=== PATIENT | male | born 1965 | race Caucasian/White ===

== ENCOUNTER 2024-05-17 18:04 | Emergency (ER) | payer SELFPAY ==
[2024-05-17 18:07] VITALS: BP 138/76
[2024-05-17 19:00] VITALS: BP 127/83
--- NOTE | 2024-05-17 19:20 | ED.GENMED ---
History of Present Illness
General
Chief Complaint: Foreign Body Removal
Source: patient
Time Seen by Provider: 05/17/24 18:36
History of Present Illness
History of Present Illness:
58-year-old male who presents with a rectal foreign body. 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 Patient states 'my girlfriend stuck it up there when she got mad at me'. Patient denies any other symptoms. Does not have a
history of pulmonary fibrosis. States he feels some discomfort but no serious abdominal pain. He reports that occurred yesterday
Past History
Past History
ED Past Medical History: Other (Pulmonary fibrosis)
Phy Exam
Physical Exam
Physical Exam:
CONSTITUTIONAL Vital signs reviewed, Patient alert and oriented to person, place and time. Well-appearing
HEAD atraumatic, normocephalic.
EYES eyelids normal to inspection, Extraocular muscles intact, Conjunctiva normal, Sclera normal.
NECK normal range of motion, Trachea midline, no jugular venous distention.
RESP no respiratory distress
BACK No obvious deformities
UPPER EXTREMITY Gross Range of motion normal, gross motor strength normal
LOWER EXTREMITY Gross range of motion normal, Gross motor strength normal
Rectal exam some hemorrhoids noted but clearly with palpable foreign body in the rectum
NEURO Speech normal, No focal motor deficits include, Marvin coma scale 15, Memory normal, Cranial Nerves intact to screening exam.
SKIN Skin warm, dry, and normal in color.
PSYCHIATRIC Patient oriented to person place and time, Normal affect.
Course
Orders/Labs/Results
Orders:
Orders
05/17/24 18:23
CR Pelvis - 1 Or 2 Views Urgent
Comment:
Reason For Exam: rectal FB
05/17/24 18:54
Abdomen Xray - 1 View [CR Abdomen - 1 View] Urgent
Comment:
Reason For Exam: rectal foreign body
05/17/24 19:05
Lidocaine 2% [Lidocaine Uro-Jet 2%] 1 syringe .ROUTE .STK-MED ONE
Vital Signs
Initial and Last Documented VS:
Initial Vital Signs
Temp Pulse Resp BP Pulse Ox
99.5 F 105 22 138/76 95
05/17/24 18:07 05/17/24 18:07 05/17/24 18:07 05/17/24 18:07 05/17/24 18:07
Last Documented Vital Signs
Temp Pulse Resp BP Pulse Ox
99.5 F 105 22 138/76 95
05/17/24 18:07 05/17/24 18:07 05/17/24 18:07 05/17/24 18:07 05/17/24 18:07
Procedures
Other
Indication for procedure:: Rectal foreign body
Procedure completed by: Dr. Neff
Consent form signed: No
If no, reason: Emergency procedure
Additional Procedure:
Foreign body removal rectum: Foreign body removed using lidocaine jelly and lubricant. Tolerated procedure relatively well. Minimal bleeding. Feels much better after procedure
MDM/Problems Addressed
MDM/Problems Addressed:
Rectal foreign body
*Pulse Oximetry
Patient hypoxic: no
*Critical Care Note
Total Time (30-74mins, 75-104mins- exclusive of procedures): Not Applicable
Data Reviewed
Source: patient
Patient Management
Escalation/DeEscalation of care consider admission/obs:
Counseled on the importance of avoiding foreign objects in the rectum. Okay for discharge
ED Attending Note
-
Portions of this chart may have been created with voice recognition software.� Occasional wrong word or��sound alike� substitutions may have occurred due to the inherent limitations of voice recognition software.
Discharge Plan
Departure
Patient Disposition: Home (Routine Discharge)
Date of Disposition: 05/17/24
Time of Disposition: 19:24
Patient with high blood pressure during this ER visit?: No
Discharge Problem:
Foreign body anus/rectum
Instructions: Rectal Foreign Body Removal (DC)
Activity Restrictions/Additional Instructions:
Please avoid putting anything in your rectum. Expect some scant bleeding and discomfort near the but this should improve over the next 3 to 4 days. Return immediately for abdominal pain or worsening rectal pain or bleeding.
Interventions
Interventions:
*Risk Screen - Suicide Last Done: 05/17/24 18:07
*General Assessment Last Done: 05/17/24 18:07
*Neglect/Abuse Screening Last Done: 05/17/24 18:07
Discharge Date and Time
Print Language: ROMANSH
[2024-05-17 19:34] VITALS: BMI 25.1
[2024-05-17 19:45] VITALS: BP 130/90
== END 2024-05-17 19:45 | disposition home or self-care (01) ==
LOC: EMR 18:04
PROVIDERS: EMERGENCY PHYSICIAN Emergency Medicine
DX: T18.5XXA Foreign body in anus and rectum, initial encounter (principal); W44.8XXA Other foreign body entering into or through a natural orifice, initial encounter
CPT/HCPCS: 99283; 72170; 74018